=== PATIENT | male | born 1985 | race Caucasian/White ===

== ENCOUNTER 2019-04-07 14:16 | Emergency (ER) | payer OTHER ==
[2019-04-07 14:29] VITALS: BP 121/65
[2019-04-07] MEDS ORDERED: CHERRY SYRUP 10 ML UDC PO ONE (14:49)
[2019-04-07] MEDS ORDERED: DEXAMETHASONE 10 MG/ML VIAL PO STA (14:49)
[2019-04-07] MEDS ORDERED: PENICILLIN VK 250 MG TABLET PO STA (14:49)
--- NOTE | 2019-04-07 14:52 | ED Physician Documentation ---
History of Present Illness - Stated complaint Stated Complaint: SORE THROAT/FEVER - Chief complaint Chief Complaint: Heent - History obtained from History obtained from: Patient - History of Present Illness Timing: How many days ago (3) Pain level max: 6 Pain level now: 5 - Additonal information Additional information: Patient with a sore throat and fever for the past 3 days. His daughter was recently treated for strep pharyngitis. Nothing makes it better. Worse with swallowing. Took Motrin prior to arrival. Review of Systems Constitutional: reports: Fever Nose: denies: Rhinorrhea / runny nose, Congestion Respiratory: denies: Cough GI: denies: Vomiting, Diarrhea Skin: denies: Rash PD PAST MEDICAL HISTORY - Past Medical History Past Medical History: No - Past Surgical History Past Surgical History: No - Present Medications Home Medications: Ambulatory Orders Medication Instructions Recorded Confirmed Penicillin V Potassium 500 mg PO Q6HR #40 tablet 04/07/19 - Allergies Allergies/Adverse Reactions: Allergies Allergy/AdvReac Type Severity Reaction Status Date / Time No Known Drug Allergies Allergy Verified 04/07/19 14:29 - Social History Does the pt smoke?: No Smoking Status: Never smoker Does the pt drink ETOH?: No Does the pt have substance abuse?: No - Immunizations Immunizations are current?: Yes PD ED PE NORMAL - Vitals Vital signs reviewed: Yes - General General: Alert and oriented X 3, No acute distress, Well developed/nourished - HEENT HEENT: PERRL, Ears normal, Moist mucous membranes, Other (Posterior oropharynx is erythematous with tonsillar exudates. Normal phonation. No trismus. Uvula midline.) - Neck Neck: Supple, no meningeal sign, Other (Shotty anterior lymphadenopathy) - Cardiac Cardiac: RRR, Strong equal pulses - Respiratory Respiratory: No respiratory distress, Clear bilaterally - Abdomen Abdomen: Soft, Non tender, Non distended - Derm Derm: Warm and dry, No rash - Neuro Neuro: Alert and oriented X 3 - Psych Psych: Normal mood, Normal affect Results - Vitals Vitals: Vital Signs - 24 hr 04/07/19 14:27 Temperature 36.7 C Heart Rate 76 Respiratory 16 Rate Blood Pressure 121/65 O2 Saturation 99 Oxygen O2 Source Room air - Labs Labs: Laboratory Tests 04/07/19 14:30 Group A Strep Rapid POSITIVE H PD MEDICAL DECISION MAKING - ED course Complexity details: reviewed results, considered differential, d/w patient ED course: Patient with strep pharyngitis. Will place on antibiotics. Given dexamethasone here. No peritonsillar abscess or retropharyngeal abscess. Patient counseled regarding signs and symptoms for which I believe and urgent re-evaluation would be necessary. Patient with good understanding of and agreement to plan and is comfortable going home at this time This document was made in part using voice recognition software. While efforts are made to proofread this document, sound alike and grammatical errors may occur. Departure - Departure Disposition: 01 Home, Self Care Clinical Impression: Strep pharyngitis Condition: Good Instructions: ED Strep Pharyngitis Conf Follow-Up: your,doctor in 1 week if not better [Other] Prescriptions: Penicillin V Potassium 500 mg PO Q6HR #40 tablet Comments: Take all antibiotics until gone. Return if you worsen. Follow-up with your doctor for further care.
== END 2019-04-07 15:12 | disposition home or self-care (01) ==
LOC: ED 14:16
DX: J02.0 Streptococcal pharyngitis (principal)
CPT/HCPCS: 87430; 99283; 99284; A9270